=== PATIENT | male | born 1970 | race Caucasian/White ===

== ENCOUNTER 2022-06-30 21:08 | Emergency (ER) | payer BC ==
[2022-06-30] MEDS ORDERED: Alum Hydroxide/Mag Hydroxide 15 ML, Lidocaine 2% 15 ML PO ONE ×2 (21:43)
[2022-06-30] MEDS ORDERED: Aluminum Hydroxide/Magnesium Hydroxide Susp 30 ML Cup ONE (21:52)
[2022-06-30 22:13] LABS: ESTIMATED GFR 106 mL/min (>60)
[2022-06-30] MEDS ORDERED: Pantoprazole 40 MG Tab.CR PO STA (22:33)
== END 2022-06-30 22:43 | disposition home or self-care (01) ==
LOC: FB.ED 21:08
DX: K21.9 Gastro-esophageal reflux disease without esophagitis (principal); K29.70 Gastritis, unspecified, without bleeding; F17.210 Nicotine dependence, cigarettes, uncomplicated; Z79.899 Other long term (current) drug therapy
CPT/HCPCS: 36415; 71045; 80053; 82150; 83690; 84484; 85025; 93005; 99284; A9270

== ENCOUNTER 2023-04-08 08:34 | Day surgery (SDC) | payer BC ==
[~2023-04-08 08:34] MED LIST: Lactated Ringers 1,000 ML IV SCH; Sodium Chloride 0.9% 10 ML Syringe FLUSH PRN
[2023-04-08] MEDS ORDERED: Lidocaine 2% 5 ML SDV ONE (08:35)
[2023-04-08] MEDS ORDERED: Midazolam 1 MG/ML 2 ML SDV IV ONE (08:35)
[2023-04-08] MEDS ORDERED: Lidocaine 2% 5 ML SDV IV ONE (08:35)
[2023-04-08] MEDS ORDERED: Propofol 200 MG/20 ML SDV IV ONE (08:35)
== END 2023-04-08 12:00 | disposition home or self-care (01) ==
LOC: FB.SDS 08:34
PROVIDERS: ATTEND Surgery
DX: K29.80 Duodenitis without bleeding (principal); K31.89 Other diseases of stomach and duodenum; K26.9 Duodenal ulcer, unspecified as acute or chronic, without hemorrhage or perforation; K42.9 Umbilical hernia without obstruction or gangrene; I10 Essential (primary) hypertension; E11.9 Type 2 diabetes mellitus without complications; E78.5 Hyperlipidemia, unspecified; E66.01 Morbid (severe) obesity due to excess calories; Z68.38 Body mass index [BMI] 38.0-38.9, adult; F17.210 Nicotine dependence, cigarettes, uncomplicated; Z79.899 Other long term (current) drug therapy
CPT/HCPCS: 00731; 82947; 88305; J2250; J2704; J7120

== ENCOUNTER 2023-04-26 02:51 | Emergency (ER) | payer BC ==
[2023-04-26] MEDS ORDERED: Aspirin 81 MG Tab.Chew PO ONE (02:59)
[2023-04-26] MEDS: Sodium Chloride 0.9% 10 ML Syringe FLUSH PRN ×2 (03:00→03:50)
[2023-04-26] MEDS: Nitroglycerin 0.4 MG Tab.SL SL PRN ×2 (03:00→03:05)
[2023-04-26] MEDS ORDERED: Metoprolol Tartrate 5 MG/5 ML SDV IVPUSH ONE ×2 (03:02→03:11)
[2023-04-26] MEDS ORDERED: Sodium Chloride 0.9% 1,000 ML IV ONE (03:05)
[2023-04-26] MEDS ORDERED: Ticagrelor 90 MG Tab PO ONE (03:09)
[2023-04-26] MEDS ORDERED: Nitroglycerin/D5W 25 MG/250 ML BOTTLE IV SCH (03:15)
[2023-04-26] MEDS ORDERED: Heparin Sodium/0.45% NaCl 25,000 UNITS/500 ML BAG IV SCH (03:15)
[2023-04-26 03:27] LABS: BLOOD UREA NITROGEN,BUN 16 mg/dL (7-18); BUN/CREATININE RATIO 14.5 (9-20); CALCIUM 9.1 mg/dL (8.6-10.2); CARBON DIOXIDE,CO2 28 mmol/L (21-32); CHLORIDE,CL 101 mmol/L (100-110); CREATININE 1.1 mg/dL (0.70-1.30); EST CRCL DRUG DOSING (CG) 70.89 mL/min; ESTIMATED GFR 81 mL/min (>60); GLUCOSE RANDOM 133 mg/dL (80-116); POTASSIUM,K 3.8 mmol/L (3.5-5.3); SODIUM,NA 139 mmol/L (135-145)
[2023-04-26 03:29] LABS: BASOPHILS ABSOLUTE AUTO 0.1 x10-3/uL (0.0-0.3); BASOPHILS PERCENT AUTO 0.8 % (0.3-3.8); EOSINOPHILS ABSOLUTE AUTO 0.2 x10-3/uL (0.0-0.6); HEMATOCRIT 51.3 % (38.3-50.1); HEMOGLOBIN 17.5 g/dL (12.9-17.7); LYMPHOCYTES ABSOLUTE AUTO 2.5 x10-3/uL (0.5-4.5); LYMPHOCYTES PERCENT AUTO 25.9 % (15.8-45.3); MEAN CORPUSCULAR HEMOGLOBIN 31.2 pg (27.0-33.3); MEAN CORPUSCULAR HGB CONC 34.2 g/dL (28.7-35.3); MEAN CORPUSCULAR VOLUME 91.3 fL (80.8-98.7); MEAN PLATELET VOLUME 7.6 fL (6.7-11.0); MONOCYTES ABSOLUTE AUTO 0.7 x10-3/uL (0.0-1.2); MONOCYTES PERCENT AUTO 7.5 % (5.5-15.2); NEUTROPHILS ABSOLUTE AUTO 6.3 x10-3/uL (1.7-6.9); NEUTROPHILS PERCENT AUTO 63.8 % (40.3-71.8); PLATELET COUNT,PLT 365 x10(3)uL (117-477); RED BLOOD CELL COUNT 5.62 x10(6)uL (3.90-5.90); RED CELL DISTRIBUTION WIDTH 13.6 % (12.4-15.0); WHITE BLOOD CELL COUNT,WBC 9.8 x10-3/uL (3.2-10.1)
[2023-04-26 03:33] LABS: A/G RATIO 1.1; ALANINE AMINOTRANSFERASE,ALT 23 U/L (12-36); ALKALINE PHOSPHATASE 59 IU/L (56-112); ASPARTATE AMNIOTRANSFERASE,AST 10 IU/L (5-25); BILIRUBIN TOTAL 0.4 mg/dL (0.1-1.3); PROTEIN TOTAL,TP 7.5 g/dL (6.0-8.0)
[2023-04-26 03:40] LABS: TROPONIN I 11.1 pg/mL (4.0-60.3)
[2023-04-26] MEDS ORDERED: Heparin Sodium 5,000 Units/ML Vial IV ONE (03:45)
[2023-04-26 03:57] LABS: INR 0.99 (1.00-1.24); PROTHROMBIN TIME 10.3 sec (9.0-11.1); PTT,PARTIAL THROMBOPLSTIN TIME 29.2 SECONDS (24.4-33.2)
[2023-04-26 04:24] LABS: INFLUENZA A NAA NEGATIVE (NEGATIVE); INFLUENZA B NAA NEGATIVE (NEGATIVE); RESPIRATORY SYNCYTIAL VIR NAA NEGATIVE (NEGATIVE)
[2023-04-26 04:43] LABS: CORONAVIRUS COVID-19 NAA NEGATIVE (NEGATIVE)
== END 2023-04-26 04:22 ==
LOC: FB.ED 02:51
DX: I21.3 ST elevation (STEMI) myocardial infarction of unspecified site (principal); C32.3 Malignant neoplasm of laryngeal cartilage; I10 Essential (primary) hypertension; E11.9 Type 2 diabetes mellitus without complications; E66.9 Obesity, unspecified; F17.200 Nicotine dependence, unspecified, uncomplicated; Z79.82 Long term (current) use of aspirin; Z79.899 Other long term (current) drug therapy; Z68.38 Body mass index [BMI] 38.0-38.9, adult
CPT/HCPCS: 0241U; 71045; 80053; 83690; 84484; 85025; 85379; 85610; 85730; 86140; 92977; 93005; 96365; 96368; 96375; 99285; A9270; J1644; J2305; J2997; J3490; J7030; 93010